=== PATIENT | male | born 1965 | race Caucasian/White ===

== ENCOUNTER 2021-05-21 07:56 | Outpatient (CLI) | payer BC, SELFPAY ==
--- NOTE | ~2021-05-21 | US_ITS ---
EXAMINATION: US carotid duplex BI DATE: 05/21/2021 09:52 INDICATION: Abdominal aortic atherosclerosis. TECHNIQUE: Grayscale, color Doppler, and pulsed Doppler images of the cervical carotid arteries were obtained. The degree of vessel stenosis is placed in one of the following categories: normal, <50%, 5 0-69%, >=70% but less than near-occlusion, near-occlusion, or total occlusion. Note that percent sten osis relative to normal distal artery lumen diameter is indirectly measured from velocity measurement s as described by Philippe, et al. Radiology 2003; 229:340-346. Notes: Normal: Peak systolic velocity <125 centimeters/sec and no plaque <50%. Peak systolic velocity <125 ( EDV <40; ICA/CCA PSV ratio <2.0; used these factors only a tandem lesions or low cardiac output or co ntralateral disease) 50-69 %: PSV 125-230 (EDV 40-100; ratio 2-4) >= 70% but less than near occlusion: PSV greater than 230 (EDV > 100; ratio> 4.0) Near Occlusion: PSV that is variable; markedly narrowed lumen Occlusion: Absent flow on color/spectral Doppler and no lumen on [place] scale. COMPARISON: None. FINDINGS: RIGHT: The right common carotid artery (CCA) peak systolic velocity (PSV) is 109 cm/s. The right internal ca rotid artery (ICA) PSV is 77 cm/s. The right ICA end-diastolic velocity (EDV) is 24 cm/s. The right I CA/CCA PSV ratio is 0.7. The external carotid artery (ECA) PSV is 173 cm/s. There is antegrade flow i n the right vertebral artery. LEFT: The left CCA PSV is 148 cm/s. The left ICA PSV is 62 cm/s. The left ICA EDV is 22 cm/s. The left ICA/ CCA PSV ratio is 0.42. The ECA PSV is 93 cm/s. There is antegrade flow in the left vertebral artery. IMPRESSION: 1. Less than 50% stenosis in the right internal carotid artery by sonographic criteria. 2. Less than 50% stenosis in the left internal carotid artery by sonographic criteria. Reviewed, dictated and finalized at location A. [employer] DEAN IMPRESSION: 1. Less than 50% stenosis in the right internal carotid artery by sonographic erik vizcaino. 2. Less than 50% stenosis in the left internal carotid artery by sonographic grant del castillo.
--- NOTE | ~2021-05-21 | MR_ITS ---
EXAMINATION: MR hip LT wo/w con DATE: 05/21/2021 11:05 INDICATION: Left hip pain. TECHNIQUE: Magnetic resonance imaging (MRI) of the left hip was performed without and with 15 mL Mult iHance intravenous contrast. Sequences included coronal T1-weighted FSE, T2-weighted FSE, and PD-weig hted FS FSE and axial T1-weighted FSE, T1-weighted FS FSE, and PD-weighted FS FSE of the pelvis. Sequ ences of the hip included 2D FIESTA, T1-weighted fast GRE, and axial, coronal, and sagittal PD-weight ed FS FSE. Postcontrast sequences included axial T1-weighted FS FSE of the pelvis and coronal T1-weig hted FS FSE of the left hip. COMPARISON: None FINDINGS: Bones/cartilage: Bone alignment is normal. No fracture. The proximal femora demonstrate decreased head/neck offset ant erolaterally, which may be seen with femoral acetabular impingement. There is mild osteoarthritis of the hips. Small [id number] images of left hip demonstrate shallow partial-thickness cartilage loss superiorly and small osteophytes. Labrum: There is a tear of the left acetabular labrum. Fluid: There is no hip joint effusion. There is mild bilateral trochanteric bursitis. Soft tissues: There is mild tendinopathy of the hamstring origins bilaterally. The iliopsoas tendons are normal. Th e right gluteus minimus and gluteus medius tendons are normal. There is mild tendinopathy of the left gluteus minimus and gluteus medius tendons. There is a small left inguinal hernia containing fat. IMPRESSION: 1. Mild osteoarthritis of the hips. 2. Small left inguinal hernia containing fat. Reviewed, dictated and finalized at location A. Y STORE MANAGER
--- NOTE | ~2021-05-21 | US_ITS ---
EXAMINATION: US aorta DATE: 05/21/2021 10:30 SENIOR HRIS ANALYST INDICATION: Hypertension, diabetes, history of smoking, high cholesterol and history of myocardial in farction TECHNIQUE: Grayscale, color Doppler, and pulsed Doppler images of the aorta and common iliac arteries were obtained. COMPARISON: None. FINDINGS: The proximal aorta measures 2.4 cm greatest sagittal dimension. The mid aorta measures 1.7 cm greates t sagittal dimension. The distal aorta measures 1.5 cm greatest sagittal dimension. The right common internal iliac artery measures 1 cm. The left common iliac artery measures 1 cm. IMPRESSION: 1. Mild atherosclerosis without evidence for aneurysm. Reviewed, dictated and finalized at location A. OR HRIS ANALYST
[2021-05-21 10:07] LABS: Estimated Glomerular Filt Rate > 60
== END 2021-05-21 07:57 | disposition home or self-care (01) ==
LOC: ANHIMG 08:02
PROVIDERS: PCP Internal Medicine; Visit Provider Internal Medicine
DX: I70.8 Atherosclerosis of other arteries (principal); M16.0 Bilateral primary osteoarthritis of hip; K40.90 Unilateral inguinal hernia, without obstruction or gangrene, not specified as recurrent; I70.0 Atherosclerosis of aorta; I65.23 Occlusion and stenosis of bilateral carotid arteries
CPT/HCPCS: 73723; 76775; 93880; A9577

== ENCOUNTER 2021-10-12 09:01 | Outpatient (CLI) | payer BC, SELFPAY ==
--- NOTE | ~2021-10-12 | XR_ITS ---
EXAMINATION: XR lg joint inject/asp w image DATE: 10/12/2021 09:54 INDICATION: Left hip arthritis. TECHNIQUE: A time-out was performed to verify the patient's name, date of , and procedure to b e performed. The procedure including the risks, benefits, and alternatives was discussed with the pat ient. Risks discussed included bleeding and infection. The patient understood the risks and agreed to proceed. The skin overlying the left hip joint was prepped and draped in usual sterile fashion. An esthetic was administered with 1% lidocaine subcutaneously. A 22 G needle was advanced under fluoros copic guidance into the joint. Injection of 1 mL of Omnipaque 240 confirmed intra-articular position of the needle. Subsequently, injectate consisting of 2 mL 0.5% bupivacaine and 2 mL 40 mg/mL Depo-M edrol was instilled. The needle was removed and the entry site was cleaned and dressed. There were no immediate complications. Fluoroscopy exposure time was 0.1 minutes. The total number of images was 2. FINDINGS: Real-time fluoroscopy demonstrates the needle in the left hip joint. Patient's pain prior t o procedure:4/10. Patient's pain following the procedure: 0/10. IMPRESSION: 1. Fluoroscopy guided left hip joint injection of local anesthetic and steroid with decrease in the p atient's presenting pain. Reviewed, dictated and finalized at location A. IMPRESSION: 1. Fluoroscopy guided left hip joint injection of local anesthetic and steroid with decrease in the patient's presenting pain.
== END 2021-10-12 09:02 | disposition home or self-care (01) ==
LOC: ANHIMG 09:05
PROVIDERS: PCP Internal Medicine; Visit Provider Orthopaedic Surgery
DX: M16.12 Unilateral primary osteoarthritis, left hip (principal)
CPT/HCPCS: 20610; 77002; J1040; Q9966

== ENCOUNTER 2023-02-07 08:00 | Outpatient (RCR) | payer BC, SELFPAY ==
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
--- NOTE | 2022-11-25 07:57 | PCPTNOTE ---
Patient called & cancelled scheduled appointment this date. No reason was given when patient left a voicemail to cancel. Stated in voicemail he would be out of town so would not be able to reschedule to tomorrow.
[2022-12-09 08:04] VITALS: BP_SYST 90
--- NOTE | 2022-12-13 08:07 | PCPTNOTE ---
Patient called & cancelled scheduled appointment this date due to being out of town and not being able to get back in time for therapy session.
--- NOTE | 2023-01-03 12:59 | PCPTNOTE ---
Patient arrived an hour early for his appointment. Was unable to be seen as another patient had this slot already scheduled. Was unable to reschedule this appointment at this time due to work schedule.
[2023-01-13 08:06] VITALS: BP_SYST 120
--- NOTE | 2023-01-13 08:50 | PTOPPROG ---
Assessment and note entered by Tiny Silver, PT Assessment Status Progress Report 01/13/23 Diagnosis left shoulder pain, cervicalgia, chronic pain Subjective Information 01/13/23 Self-improvement: 40-50% Reaching overhead has improved, still difficulty with reaching behind. Reports not doing the belt thing but is the hand thing and the car thing . Was able to crawl under the camper and put the lights on. Assessment PT Clinical Summary Pt demo's significant improvements in active and passive ROM, as well as repots of pain at worst rating decreasing from 9/10 to 6/10. Pt also reports improved function allowing him to accomplish projects he had been previously attempting and unable to perform. Pt cont to have difficulty with activities, has yet to reach ROM WNL, and cont to have significant difficulty with dressing. Thus as patient continues to show proressive improvement, he would benefit from cont therapy to continue improvements and reach functional goals. Plan of Care Interventions Electrical Stimulation,Hot Pack/Cold Pack,Manual Therapy,Neuro Re-education,Therapeutic Activities, Therapeutic Exercise,Ultrasound PT Services Indicated Yes Treatment Frequency and 1-2x weekly x 6 weeks. Duration These treatments will address the objective and functional deficits as defined above. The patient will be advanced safely and appropriately in order for the patient to progress towards his/her prior level of function. Additional exercises will be introduced and as well as a comprehensive home exercise program upon discharge, if needed, ?to ensure carryover of functional gains achieved in the clinic. This treatment plan has been reviewed and agreement upon by the patient.
== END 2023-02-09 23:59 | disposition home or self-care (01) ==
LOC: ANHHIPT 08:00
PROVIDERS: PCP Physician Assistant Medical; Visit Provider Physician Assistant Medical
DX: M25.512 Pain in left shoulder (principal); M54.2 Cervicalgia; G89.29 Other chronic pain
CPT/HCPCS: 97014; 97110; 97140; 97162; G0283

== ENCOUNTER 2023-04-21 08:00 | Outpatient (RCR) | payer BC, SELFPAY ==
[2023-02-10 00:03] VITALS: BP_SYST 120
[2023-02-24 08:00] VITALS: BP_SYST 110
--- NOTE | 2023-02-24 11:08 | PTOPPROG ---
Assessment and note entered by Tiny Silver, PT Assessment Status Progress Report Diagnosis left shoulder pain, cervicalgia, chronic pain Onset 4 weeks Subjective Information 02/24/23 Self-improvement: 75% Reports in beginning couldn't raise his hand beyond his face. Reports 80% imprpvement in lifting arm overhead in order to wash underarms in the shower and get dressed easier, 50% improvement in reaching behind for tucking in shit and belt. Is able now to tuck in shirt and loop belt but still has difficulty. 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 swatting with left arm such as with wasps and with [employer] game has pain go up to 9/10 but only lasts a moment. Assessment PT Clinical Summary Pt has been attending therapy consistently for 20 visits. He continues to demo improvements in passive and active range of motion and continues to report improvements in ADLS such as dressing and bathing. Pt plan of care was not focused on strength initially as range was so limited. Strength testing performed today showing an overall deficit of left shoulder strength compared to right. He does report a higher pain rating at worst rating however is related to swatting fast motions and reports the pain subsides quickly. As patient has yet to plateau in therapy and continues to report deficits, he would benefit from continued therapy to continue improving deficits and improve functional abilities wiht less pain. Plan of Care Interventions Electrical Stimulation,Hot Pack/Cold Pack,Manual Therapy,Neuro Re-education,Therapeutic Activities, Therapeutic Exercise,Self-Care/Home Management, Ultrasound PT Services Indicated Yes Treatment Frequency and 1-2x weekly x 8 visits Duration These treatments will address the objective and functional deficits as defined above. The patient will be advanced safely and appropriately in order for the patient to progress towards his/her prior level of function. Additional exercises will be introduced and as well as a comprehensive home exercise program upon discharge, if needed, ?to ensure carryover of functional gains achieved in the clinic. This treatment plan has been reviewed and agreement upon by the patient.
[2023-04-04 08:00] VITALS: BP_SYST 120
--- NOTE | 2023-04-06 16:47 | PTOPPROG ---
Assessment and note entered by Tiny Silver, PT Assessment Status Progress Diagnosis left shoulder pain, cervicalgia, chronic pain Subjective Information 04/04/23 Reeval Only a couple of instances of increased pain with activities such as lifting a 100 lb tire while working at home. Self-improvement: 80% Less painful episodes Cane reach above belt now But still has discomfort with reaching out with games and high level activities and fast movements but is less than previously. brick yard hand motions are still problemactic Assessment PT Clinical Summary Pt has attended therapy sporadically this plan of care secondary to scheduling difficutly related to work and vacation. However pt shows significant improvements in his AROM and PROM especially in internal rotation with pt reporting has been very consistent with his home exercises. Pt also shows some improvements in his strength of the LUE compared to previous testing. Pt continues to have boughts of high pain levels with quick motions and lifting effecting his ability to interact with family as well as care for home. Pt also has not fully met his therapy goals, thus would benefit from continued therapy to continue improvements, and finalize home program to allow continued independent progress. Plan of Care Interventions Electrical Stimulation,Hot Pack/Cold Pack,Manual Therapy,Neuro Re-education,Therapeutic Activities, Therapeutic Exercise,Self-Care/Home Management, Ultrasound PT Services Indicated Yes Treatment Frequency and 1-2x weekly 4 weeks Duration These treatments will address the objective and functional deficits as defined above. The patient will be advanced safely and appropriately in order for the patient to progress towards his/her prior level of function. Additional exercises will be introduced and as well as a comprehensive home exercise program upon discharge, if needed, ?to ensure carryover of functional gains achieved in the clinic. This treatment plan has been reviewed and agreement upon by the patient.
--- NOTE | 2023-07-21 12:33 | PCPTNOTE ---
Admitting Provider: Attending Provider: Caitlin Hurst PA-C Patient:Eamon Ren Date of :1965 Patient has not returned for any further treatments since 04/21/2023, therefore he will be discharged at this time. The goals have been partially met. Thank you for referring this patient to [facility].
== END 2023-05-16 11:40 | disposition still patient (30) ==
LOC: ANHHIPT 08:00
PROVIDERS: PCP Physician Assistant Medical; Visit Provider Physician Assistant Medical
DX: M25.512 Pain in left shoulder (principal); M54.2 Cervicalgia; G89.29 Other chronic pain
CPT/HCPCS: 97014; 97110; 97112; 97140; 97750; G0283